=== PATIENT | male | born 1970 | race Asian ===

== ENCOUNTER 2023-08-27 17:31 | Inpatient (IN) | payer MEDICAID ==
[~2023-08-27] VITALS: Ht 152.4 cm; Wt 53.5 kg
[2023-08-27] MEDS ORDERED: FLUT16SP BNOSTRILS (18:41)
[2023-08-27] MEDS ORDERED: ACET-868 PO (18:41)
[2023-08-27] MEDS ORDERED: SENN-261 PO (18:41)
[2023-08-27] MEDS ORDERED: VITA1TAB20 PO (18:41)
[2023-08-27] MEDS ORDERED: ACET-2605 PO (18:41)
[2023-08-27] MEDS ORDERED: MULT-594 PO (18:41)
[2023-08-27] MEDS ORDERED: AMOX1TAB16 PO (18:41)
[2023-08-27] MEDS ORDERED: DOCU100T2 PO (18:41)
[2023-08-27] MEDS ORDERED: OSEL75CA PO (18:41)
[2023-08-27] MEDS ORDERED: DIVA125C5 PO (18:41)
[2023-08-27] MEDS ORDERED: IPRA3AMP22 IH (18:41)
[2023-08-27] MEDS ORDERED: MAGN400T8 PO (18:41)
[2023-08-27 19:11] LABS: BASOPHILS % (AUTO) 0.4 % (0.0-2.0); EOSINOPHILS % (AUTO) 0.3 % (0.0-6.0); HEMATOCRIT 35 % (39-51); HEMOGLOBIN 11.6 g/dL (13.5-17.5); LYMPHOCYTES # (AUTO) 3.5 K/uL (0.8-4.8); LYMPHOCYTES % (AUTO) 39.7 % (20.0-44.0); MEAN CORPUSCULAR HEMOGLOBIN 33 PG (26.0-33.0); MEAN CORPUSCULAR HGB CONC 33 g/dl (31.0-36.0); MEAN CORPUSCULAR VOLUME 99 fL (80-96); MONOCYTES % (AUTO) 11.2 % (2.0-12.0); NEUTROPHILS # (AUTO) 4.2 K/uL (1.8-8.9); NEUTROPHILS % (AUTO) 48.4 % (43.0-81.0); PLATELET COUNT (AUTO) 570 K/uL (150-450); RED BLOOD CELL COUNT(AUTO) 3.53 MIL/uL (4.5-6.0); RED CELL DISTRIBUTION WIDTH 14.4 % (11.5-15.0); WHITE BLOOD COUNT (AUTO) 8.8 K/uL (4.3-11.0)
[2023-08-27 19:21] LABS: CALCIUM, SERUM 8.7 mg/dL (8.5-10.1); CARBON DIOXIDE 31 mmol/L (21-32); CHLORIDE 101 mmol/L (98-107); CREATININE 0.9 mg/dL (0.6-1.3); GLUCOSE 98 mg/dL (74-106); POTASSIUM 4.7 mmol/L (3.5-5.1); SODIUM SERUM 137 mmol/L (136-145); UREA NITROGEN, BLOOD 15 mg/dL (7-18)
[2023-08-27 19:32] LABS: ALANINE AMINOTRANSFERASE 8 U/L (12-78); ALBUMIN 2.7 g/dL (3.4-5.0); ALKALINE PHOSPHATASE 90 U/L (46-116); ASPARTATE AMINOTRANSFERASE 26 U/L (15-37); BILIRUBIN,DIRECT 0.1 mg/dL (0.0-0.2); BILIRUBIN,TOTAL 0.2 mg/dL (0.2-1.0); NT-PRO BNP 138 pg/mL (0-125); TOTAL PROTEIN, SERUM 7.8 g/dL (6.4-8.2)
[2023-08-27] MEDS ORDERED: CEFTRIAXONE 1GM BAG (ER ONLY) 1 GM/50 ML PIGGYBACK IV ONE (21:00)
[2023-08-27] MEDS ORDERED: AZITHROMYCIN 500 MG in IV D5W 250 ML IV ONE (21:00)
[2023-08-27] MEDS ORDERED: AZITHROMYCIN 500 MG VIAL ONE (21:56)
[2023-08-27] MEDS ORDERED: ACETAMINOPHEN 650 MG/SUPP.RECT RC PRN (22:30)
[2023-08-27] MEDS ORDERED: MAGNESIUM HYDROXIDE 30 ML UDC PO PRN (22:30)
[2023-08-27] MEDS ORDERED: MAG HYDROX/AL HYDROX/SIMETH 30 ML UDC PO PRN (22:30)
[2023-08-27] MEDS ORDERED: ZOLPIDEM TARTRATE 5 MG TABLET PO PRN (22:30)
[2023-08-27] MEDS ORDERED: Z GUARD REMEDY 4 OZ OINT TP PRN (22:30)
[2023-08-27] MEDS ORDERED: ACETAMINOPHEN 325 MG TABLET PO PRN (22:30)
[2023-08-27] MEDS ORDERED: ONDANSETRON HCL/PF 4 MG/2 ML VIAL IVP PRN (22:30)
[2023-08-28] VITALS (13 sets, daily range): BP systolic 102–143; BP diastolic 52–97; TEMP 97.3–98.8; O2SAT 92–99
[2023-08-28] MEDS ORDERED: Medication Not On Formulary EA (Ipratropium/Albuterol Sulfate (Ipratr-Albuterol 0.5-3 Mg IH SCH (01:00)
[2023-08-28] MEDS: IV NS 0.9% 1,000 ML IV PRN (01:32)
[2023-08-28] MEDS: IPRATROPIUM NEB FS 0.5 MG/2.5 ML AMPUL.NEB IH SCH ×6 (05:26→22:53)
[2023-08-28] MEDS: ALBUTEROL FS 2.5 MG/0.5 ML VIAL.NEB NEB SCH ×6 (05:26→22:53)
[2023-08-28] MEDS: DIVALPROEX SODIUM 125 MG CAP.SPRINK PO SCH ×2 (09:00→16:09)
[2023-08-28] MEDS: FLUTICASONE PROPIONATE 16 GM BOTTLE NS SCH (09:00)
[2023-08-28] MEDS: DOCUSATE SODIUM 100 MG CAPSULE PO SCH ×2 (09:00→16:09)
[2023-08-28] MEDS: VITAMIN B COMP W-C 1 TAB TABLET PO SCH (09:00)
[2023-08-28] MEDS: MULTIVITAMINS,THERAGRAN 1 UDTAB TABLET PO SCH (09:00)
[2023-08-28] MEDS ORDERED: CEFTRIAXONE 1 G in IV D5W 50 ML IV SCH ×2 (09:00→21:00)
[2023-08-28] MEDS: MAGNESIUM OXIDE 400 MG TABLET PO SCH (09:00)
[2023-08-28 09:19] LABS: BASOPHILS # (AUTO) 0.1 K/uL (0.0-0.2); BASOPHILS % (AUTO) 0.6 % (0.0-2.0); EOSINOPHILS % (AUTO) 0.4 % (0.0-6.0); HEMATOCRIT 37 % (39-51); HEMOGLOBIN 12.6 g/dL (13.5-17.5); LYMPHOCYTES # (AUTO) 3.8 K/uL (0.8-4.8); MEAN CORPUSCULAR HEMOGLOBIN 34 PG (26.0-33.0); MEAN CORPUSCULAR HGB CONC 34 g/dl (31.0-36.0); MEAN CORPUSCULAR VOLUME 99 fL (80-96); MONOCYTES # (AUTO) 0.9 K/uL (0.1-1.30); MONOCYTES % (AUTO) 10.9 % (2.0-12.0); NEUTROPHILS # (AUTO) 3.5 K/uL (1.8-8.9); NEUTROPHILS % (AUTO) 42.1 % (43.0-81.0); PLATELET COUNT (AUTO) 584 K/uL (150-450); RED BLOOD CELL COUNT(AUTO) 3.75 MIL/uL (4.5-6.0); RED CELL DISTRIBUTION WIDTH 14.4 % (11.5-15.0); WHITE BLOOD COUNT (AUTO) 8.3 K/uL (4.3-11.0)
[2023-08-28 09:37] LABS: CALCIUM, SERUM 8.7 mg/dL (8.5-10.1); CREATININE 0.7 mg/dL (0.6-1.3); MAGNESIUM 2.5 mg/dL (1.8-2.4); PHOSPHORUS 3.4 mg/dL (2.5-4.9); POTASSIUM 3.7 mmol/L (3.5-5.1)
[2023-08-28 10:25] LABS: FREE T4 (FREE THYROXINE) 1.23 ng/dL (0.76-1.46); THYROID STIMULATING HORMONE 2.359 uIU/mL (0.358-3.74)
[2023-08-28] MEDS: ENOXAPARIN SODIUM 40 MG/0.4 ML DISP.SYRIN SQ SCH (13:11)
[2023-08-28] MEDS ORDERED: AZITHROMYCIN 500 MG in IV D5W 250 ML IV SCH (21:00)
[2023-08-28] MEDS: SENNOSIDES 8.6 MG TABLET PO SCH (21:45)
[2023-08-29] VITALS (12 sets, daily range): BP systolic 95–115; BP diastolic 59–84; TEMP 98–98.5; O2SAT 93–100
[2023-08-29] MEDS: IPRATROPIUM NEB FS 0.5 MG/2.5 ML AMPUL.NEB IH SCH ×5 (04:00→19:49)
[2023-08-29] MEDS: ALBUTEROL FS 2.5 MG/0.5 ML VIAL.NEB NEB SCH ×5 (04:00→19:49)
[2023-08-29 06:54] LABS: BASOPHILS % (AUTO) 0.4 % (0.0-2.0); EOSINOPHILS % (AUTO) 0.1 % (0.0-6.0); HEMATOCRIT 34 % (39-51); HEMOGLOBIN 11.5 g/dL (13.5-17.5); LYMPHOCYTES # (AUTO) 3.6 K/uL (0.8-4.8); LYMPHOCYTES % (AUTO) 40.9 % (20.0-44.0); MEAN CORPUSCULAR HEMOGLOBIN 33 PG (26.0-33.0); MEAN CORPUSCULAR HGB CONC 34 g/dl (31.0-36.0); MEAN CORPUSCULAR VOLUME 99 fL (80-96); MONOCYTES % (AUTO) 11.9 % (2.0-12.0); NEUTROPHILS # (AUTO) 4.1 K/uL (1.8-8.9); NEUTROPHILS % (AUTO) 46.7 % (43.0-81.0); PLATELET COUNT (AUTO) 628 K/uL (150-450); RED BLOOD CELL COUNT(AUTO) 3.46 MIL/uL (4.5-6.0); RED CELL DISTRIBUTION WIDTH 14.8 % (11.5-15.0); WHITE BLOOD COUNT (AUTO) 8.8 K/uL (4.3-11.0)
[2023-08-29 07:05] LABS: CALCIUM, SERUM 8.7 mg/dL (8.5-10.1); CREATININE 0.7 mg/dL (0.6-1.3); POTASSIUM 3.5 mmol/L (3.5-5.1)
[2023-08-29] MEDS: FLUTICASONE PROPIONATE 16 GM BOTTLE NS SCH (08:52)
[2023-08-29] MEDS: ENOXAPARIN SODIUM 40 MG/0.4 ML DISP.SYRIN SQ SCH (08:53)
[2023-08-29] MEDS: MULTIVITAMINS,THERAGRAN 1 UDTAB TABLET PO SCH (09:58)
[2023-08-29] MEDS: DIVALPROEX SODIUM 125 MG CAP.SPRINK PO SCH ×2 (09:59→16:45)
[2023-08-29] MEDS: MAGNESIUM OXIDE 400 MG TABLET PO SCH (09:59)
[2023-08-29] MEDS: DOCUSATE SODIUM 100 MG CAPSULE PO SCH ×2 (09:59→16:45)
[2023-08-29] MEDS: VITAMIN B COMP W-C 1 TAB TABLET PO SCH (10:02)
[2023-08-29] MEDS ORDERED: VANCOMYCIN 1.25 GM in IV D5W 250 ML IV ONE (12:00)
[2023-08-29] MEDS: CEFEPIME 2 GM in IV D5W 100 ML IV SCH ×2 (12:28→20:09)
[2023-08-29] MEDS: IV NS 0.9% 1,000 ML IV PRN (12:32)
[2023-08-29] MEDS: JEVITY 1.2 CAL 1,000 ML BOTTLE GT SCH (16:46)
[2023-08-29] MEDS: VANCOMYCIN HCL 0.75 GM in IV D5W 250 ML IV SCH (20:09)
[2023-08-29] MEDS: SENNOSIDES 8.6 MG TABLET PO SCH (21:11)
[2023-08-30] VITALS (20 sets, daily range): BP systolic 99–124; BP diastolic 62–89; TEMP 97.5–99.1; O2SAT 0–100
[2023-08-30] MEDS: ALBUTEROL FS 2.5 MG/0.5 ML VIAL.NEB NEB SCH ×7 (00:15→23:34)
[2023-08-30] MEDS: IPRATROPIUM NEB FS 0.5 MG/2.5 ML AMPUL.NEB IH SCH ×7 (00:15→23:34)
[2023-08-30] MEDS: CEFEPIME 2 GM in IV D5W 100 ML IV SCH ×2 (05:15→17:35)
[2023-08-30] MEDS: VANCOMYCIN HCL 0.75 GM in IV D5W 250 ML IV SCH (05:16)
[2023-08-30] MEDS: IV NS 0.9% 1,000 ML IV PRN (05:23)
[2023-08-30 06:56] LABS: CALCIUM, SERUM 8.8 mg/dL (8.5-10.1); CREATININE 0.7 mg/dL (0.6-1.3); POTASSIUM 4.2 mmol/L (3.5-5.1)
[2023-08-30] MEDS: ENOXAPARIN SODIUM 40 MG/0.4 ML DISP.SYRIN SQ SCH (08:52)
[2023-08-30] MEDS: VITAMIN B COMP W-C 1 TAB TABLET PO SCH (08:54)
[2023-08-30] MEDS: MULTIVITAMINS,THERAGRAN 1 UDTAB TABLET PO SCH (08:54)
[2023-08-30] MEDS: MAGNESIUM OXIDE 400 MG TABLET PO SCH (08:55)
[2023-08-30] MEDS: DOCUSATE SODIUM 100 MG CAPSULE PO SCH ×2 (08:55→17:33)
[2023-08-30] MEDS: DIVALPROEX SODIUM 125 MG CAP.SPRINK PO SCH ×2 (08:56→17:33)
[2023-08-30] MEDS: FLUTICASONE PROPIONATE 16 GM BOTTLE NS SCH (09:27)
[2023-08-30] MEDS: SENNOSIDES 8.6 MG TABLET PO SCH (22:02)
[2023-08-31] VITALS (14 sets, daily range): BP systolic 103–154; BP diastolic 49–141; TEMP 98–99.5; O2SAT 93–100
[2023-08-31] MEDS: IPRATROPIUM NEB FS 0.5 MG/2.5 ML AMPUL.NEB IH SCH ×5 (03:42→20:12)
[2023-08-31] MEDS: ALBUTEROL FS 2.5 MG/0.5 ML VIAL.NEB NEB SCH ×5 (03:42→20:12)
[2023-08-31] MEDS: CEFEPIME 2 GM in IV D5W 100 ML IV SCH ×2 (04:33→17:33)
[2023-08-31] MEDS: VANCOMYCIN HCL 0.75 GM in IV D5W 250 ML IV SCH ×2 (04:42→18:24)
[2023-08-31 07:41] LABS: CALCIUM, SERUM 8.7 mg/dL (8.5-10.1); CREATININE 0.8 mg/dL (0.6-1.3); POTASSIUM 3.4 mmol/L (3.5-5.1)
[2023-08-31] MEDS ORDERED: POTASSIUM CHLORIDE 20 MEQ POWDER PACKET NG SCH (10:00)
[2023-08-31] MEDS: VITAMIN B COMP W-C 1 TAB TABLET PO SCH (10:06)
[2023-08-31] MEDS: DIVALPROEX SODIUM 125 MG CAP.SPRINK PO SCH ×2 (10:07→17:16)
[2023-08-31] MEDS: MAGNESIUM OXIDE 400 MG TABLET PO SCH (10:07)
[2023-08-31] MEDS: FLUTICASONE PROPIONATE 16 GM BOTTLE NS SCH (10:07)
[2023-08-31] MEDS: DOCUSATE SODIUM 100 MG CAPSULE PO SCH ×2 (10:07→17:16)
[2023-08-31] MEDS: ENOXAPARIN SODIUM 40 MG/0.4 ML DISP.SYRIN SQ SCH (10:08)
[2023-08-31] MEDS: MULTIVITAMINS,THERAGRAN 1 UDTAB TABLET PO SCH (10:09)
[2023-08-31 12:06] LABS: *SPE A/G RATIO 0.6 (0.7-1.7); *SPE ALBUMIN 2.8 g/dL (2.9-4.4); *SPE ALPHA-1-GLOBULIN 0.3 g/dL (0.0-0.4); *SPE BETA GLOBULIN 1.3 g/dL (0.7-1.3); *SPE GLOBULIN, TOTAL 4.4 g/dL (2.2-3.9); *SPE M-SPIKE Not Observed g/dL (Not Observed); *SPE PROTEIN TOTAL 7.2 g/dL (6.0-8.5); *SPEGAMMA GLOBULIN 1.8 g/dL (0.4-1.8)
[2023-08-31] MEDS: IV NS 0.9% 1,000 ML IV PRN (13:25)
[2023-08-31] MEDS: JEVITY 1.2 CAL 1,000 ML BOTTLE GT SCH (17:34)
[2023-08-31] MEDS: SENNOSIDES 8.6 MG TABLET PO SCH (21:54)
[2023-09-01] VITALS (15 sets, daily range): BP systolic 96–129; BP diastolic 58–93; TEMP 98.4–99.7; O2SAT 96–100
[2023-09-01] MEDS: ALBUTEROL FS 2.5 MG/0.5 ML VIAL.NEB NEB SCH ×6 (00:31→20:06)
[2023-09-01] MEDS: IPRATROPIUM NEB FS 0.5 MG/2.5 ML AMPUL.NEB IH SCH ×6 (00:31→20:06)
[2023-09-01] MEDS: CEFEPIME 2 GM in IV D5W 100 ML IV SCH ×2 (04:13→16:03)
[2023-09-01] MEDS: IV NS 0.9% 1,000 ML IV PRN (05:01)
[2023-09-01] MEDS: VANCOMYCIN HCL 0.75 GM in IV D5W 250 ML IV SCH ×2 (05:02→17:24)
[2023-09-01 07:19] LABS: BASOPHILS # (AUTO) 0.1 K/uL (0.0-0.2); BASOPHILS % (AUTO) 0.7 % (0.0-2.0); EOSINOPHILS % (AUTO) 0.3 % (0.0-6.0); HEMATOCRIT 36 % (39-51); HEMOGLOBIN 11.9 g/dL (13.5-17.5); LYMPHOCYTES # (AUTO) 3.6 K/uL (0.8-4.8); LYMPHOCYTES % (AUTO) 30.9 % (20.0-44.0); MEAN CORPUSCULAR HEMOGLOBIN 33 PG (26.0-33.0); MEAN CORPUSCULAR HGB CONC 33 g/dl (31.0-36.0); MEAN CORPUSCULAR VOLUME 100 fL (80-96); MONOCYTES # (AUTO) 1.5 K/uL (0.1-1.30); MONOCYTES % (AUTO) 12.9 % (2.0-12.0); NEUTROPHILS # (AUTO) 6.5 K/uL (1.8-8.9); NEUTROPHILS % (AUTO) 55.2 % (43.0-81.0); PLATELET COUNT (AUTO) 607 K/uL (150-450); RED BLOOD CELL COUNT(AUTO) 3.58 MIL/uL (4.5-6.0); RED CELL DISTRIBUTION WIDTH 15.2 % (11.5-15.0); WHITE BLOOD COUNT (AUTO) 11.8 K/uL (4.3-11.0)
[2023-09-01 07:41] LABS: CALCIUM, SERUM 8.9 mg/dL (8.5-10.1); CREATININE 0.7 mg/dL (0.6-1.3); POTASSIUM 3.9 mmol/L (3.5-5.1)
[2023-09-01] MEDS: MULTIVITAMINS,THERAGRAN 1 UDTAB TABLET PO SCH (08:36)
[2023-09-01] MEDS: DIVALPROEX SODIUM 125 MG CAP.SPRINK PO SCH ×2 (08:36→16:14)
[2023-09-01] MEDS: DOCUSATE SODIUM 100 MG CAPSULE PO SCH ×2 (08:36→16:14)
[2023-09-01] MEDS: FLUTICASONE PROPIONATE 16 GM BOTTLE NS SCH (08:36)
[2023-09-01] MEDS: MAGNESIUM OXIDE 400 MG TABLET PO SCH (08:36)
[2023-09-01] MEDS: ENOXAPARIN SODIUM 40 MG/0.4 ML DISP.SYRIN SQ SCH (09:06)
[2023-09-01] MEDS: VITAMIN B COMP W-C 1 TAB TABLET PO SCH (09:07)
[2023-09-01] MEDS: JEVITY 1.2 CAL 1,000 ML BOTTLE GT SCH (13:35)
[2023-09-01] MEDS: SENNOSIDES 8.6 MG TABLET PO SCH (23:02)
[2023-09-02] VITALS (19 sets, daily range): BP systolic 108–128; BP diastolic 62–99; TEMP 98.1–98.8; O2SAT 92–100
[2023-09-02] MEDS: IPRATROPIUM NEB FS 0.5 MG/2.5 ML AMPUL.NEB IH SCH ×8 (00:14→23:46)
[2023-09-02] MEDS: ALBUTEROL FS 2.5 MG/0.5 ML VIAL.NEB NEB SCH ×8 (00:14→23:46)
[2023-09-02] MEDS: IV NS 0.9% 1,000 ML IV PRN ×3 (01:06→21:29)
[2023-09-02] MEDS: VANCOMYCIN HCL 0.75 GM in IV D5W 250 ML IV SCH ×2 (05:00→16:01)
[2023-09-02] MEDS: CEFEPIME 2 GM in IV D5W 100 ML IV SCH ×2 (05:25→17:22)
[2023-09-02 06:54] LABS: BASOPHILS % (AUTO) 0.4 % (0.0-2.0); EOSINOPHILS # (AUTO) 0.1 K/uL (0.0-0.7); EOSINOPHILS % (AUTO) 0.8 % (0.0-6.0); HEMATOCRIT 32 % (39-51); HEMOGLOBIN 11.3 g/dL (13.5-17.5); LYMPHOCYTES # (AUTO) 2.7 K/uL (0.8-4.8); LYMPHOCYTES % (AUTO) 29.1 % (20.0-44.0); MEAN CORPUSCULAR HEMOGLOBIN 34 PG (26.0-33.0); MEAN CORPUSCULAR HGB CONC 35 g/dl (31.0-36.0); MEAN CORPUSCULAR VOLUME 97 fL (80-96); MONOCYTES # (AUTO) 1.3 K/uL (0.1-1.30); MONOCYTES % (AUTO) 14.1 % (2.0-12.0); NEUTROPHILS # (AUTO) 5.2 K/uL (1.8-8.9); NEUTROPHILS % (AUTO) 55.6 % (43.0-81.0); PLATELET COUNT (AUTO) 558 K/uL (150-450); RED BLOOD CELL COUNT(AUTO) 3.32 MIL/uL (4.5-6.0); RED CELL DISTRIBUTION WIDTH 14.6 % (11.5-15.0); WHITE BLOOD COUNT (AUTO) 9.3 K/uL (4.3-11.0)
[2023-09-02 07:18] LABS: PARTIAL THROMBOPLASTIN TIME 29.9 SEC (24.3-34.3); PROTHROMBIN TIME 10.6 SECS (9.2-11.1)
[2023-09-02 07:27] LABS: CALCIUM, SERUM 8.9 mg/dL (8.5-10.1); CREATININE 0.7 mg/dL (0.6-1.3); MAGNESIUM 2.5 mg/dL (1.8-2.4); PHOSPHORUS 4.1 mg/dL (2.5-4.9); POTASSIUM 3.7 mmol/L (3.5-5.1)
[2023-09-02] MEDS: VITAMIN B COMP W-C 1 TAB TABLET PO SCH (08:31)
[2023-09-02] MEDS: DOCUSATE SODIUM 100 MG CAPSULE PO SCH ×2 (08:31→16:24)
[2023-09-02] MEDS: MULTIVITAMINS,THERAGRAN 1 UDTAB TABLET PO SCH (08:31)
[2023-09-02] MEDS: ENOXAPARIN SODIUM 40 MG/0.4 ML DISP.SYRIN SQ SCH (08:32)
[2023-09-02] MEDS: DIVALPROEX SODIUM 125 MG CAP.SPRINK PO SCH ×2 (08:32→16:24)
[2023-09-02] MEDS: MAGNESIUM OXIDE 400 MG TABLET PO SCH (08:32)
[2023-09-02] MEDS: FLUTICASONE PROPIONATE 16 GM BOTTLE NS SCH (08:35)
[2023-09-02] MEDS ORDERED: ANESTHESIA TRAY IN PYXIS 1 EA TRAY MC ONE (12:58)
[2023-09-02] MEDS: SENNOSIDES 8.6 MG TABLET PO SCH (21:29)
[2023-09-03] VITALS (11 sets, daily range): BP systolic 90–135; BP diastolic 60–76; TEMP 97–98.5; O2SAT 94–100
[2023-09-03] MEDS: ALBUTEROL FS 2.5 MG/0.5 ML VIAL.NEB NEB SCH ×6 (04:09→23:53)
[2023-09-03] MEDS: IPRATROPIUM NEB FS 0.5 MG/2.5 ML AMPUL.NEB IH SCH ×6 (04:09→23:53)
[2023-09-03] MEDS: JEVITY 1.2 CAL 1,000 ML BOTTLE GT SCH (04:48)
[2023-09-03] MEDS: IV NS 0.9% 1,000 ML IV PRN (05:00)
[2023-09-03] MEDS: CEFEPIME 2 GM in IV D5W 100 ML IV SCH ×2 (05:35→16:17)
[2023-09-03] MEDS: VANCOMYCIN HCL 0.75 GM in IV D5W 250 ML IV SCH ×2 (05:36→17:04)
[2023-09-03 06:47] LABS: BASOPHILS # (AUTO) 0.1 K/uL (0.0-0.2); BASOPHILS % (AUTO) 0.5 % (0.0-2.0); EOSINOPHILS % (AUTO) 0.4 % (0.0-6.0); HEMATOCRIT 33 % (39-51); HEMOGLOBIN 11.2 g/dL (13.5-17.5); LYMPHOCYTES # (AUTO) 2.6 K/uL (0.8-4.8); MEAN CORPUSCULAR HEMOGLOBIN 33 PG (26.0-33.0); MEAN CORPUSCULAR HGB CONC 34 g/dl (31.0-36.0); MEAN CORPUSCULAR VOLUME 99 fL (80-96); MONOCYTES # (AUTO) 1.8 K/uL (0.1-1.30); MONOCYTES % (AUTO) 15.9 % (2.0-12.0); NEUTROPHILS # (AUTO) 6.8 K/uL (1.8-8.9); NEUTROPHILS % (AUTO) 60.2 % (43.0-81.0); PLATELET COUNT (AUTO) 475 K/uL (150-450); RED BLOOD CELL COUNT(AUTO) 3.38 MIL/uL (4.5-6.0); RED CELL DISTRIBUTION WIDTH 14.8 % (11.5-15.0); WHITE BLOOD COUNT (AUTO) 11.3 K/uL (4.3-11.0)
[2023-09-03 07:06] LABS: CALCIUM, SERUM 9.1 mg/dL (8.5-10.1); CREATININE 0.7 mg/dL (0.6-1.3); MAGNESIUM 2.6 mg/dL (1.8-2.4); PHOSPHORUS 3.9 mg/dL (2.5-4.9); POTASSIUM 4.1 mmol/L (3.5-5.1)
[2023-09-03] MEDS: MULTIVITAMINS,THERAGRAN 1 UDTAB TABLET PO SCH (09:00)
[2023-09-03] MEDS: MAGNESIUM OXIDE 400 MG TABLET PO SCH (09:00)
[2023-09-03] MEDS: DOCUSATE SODIUM 100 MG CAPSULE PO SCH ×2 (09:00→17:00)
[2023-09-03] MEDS: VITAMIN B COMP W-C 1 TAB TABLET PO SCH (09:00)
[2023-09-03] MEDS: DIVALPROEX SODIUM 125 MG CAP.SPRINK PO SCH ×2 (09:00→17:00)
[2023-09-03] MEDS: ENOXAPARIN SODIUM 40 MG/0.4 ML DISP.SYRIN SQ SCH (09:00)
[2023-09-03] MEDS: FLUTICASONE PROPIONATE 16 GM BOTTLE NS SCH (09:23)
[2023-09-03] MEDS ORDERED: ANESTHESIA TRAY IN PYXIS 1 EA TRAY MC ONE (14:59)
[2023-09-03] MEDS: SENNOSIDES 8.6 MG TABLET PO SCH (21:42)
[2023-09-04] VITALS (16 sets, daily range): BP systolic 84–104; BP diastolic 66–76; TEMP 97.8–100.1; O2SAT 96–99
[2023-09-04] MEDS: CEFEPIME 2 GM in IV D5W 100 ML IV SCH ×2 (04:04→16:59)
[2023-09-04] MEDS: IPRATROPIUM NEB FS 0.5 MG/2.5 ML AMPUL.NEB IH SCH ×5 (04:17→20:12)
[2023-09-04] MEDS: ALBUTEROL FS 2.5 MG/0.5 ML VIAL.NEB NEB SCH ×5 (04:17→20:12)
[2023-09-04] MEDS: VANCOMYCIN HCL 0.75 GM in IV D5W 250 ML IV SCH ×2 (04:41→17:59)
[2023-09-04 07:26] LABS: CALCIUM, SERUM 8.2 mg/dL (8.5-10.1); CREATININE 0.7 mg/dL (0.6-1.3); POTASSIUM 3.7 mmol/L (3.5-5.1)
[2023-09-04] MEDS: JEVITY 1.2 CAL 1,000 ML BOTTLE GT SCH (08:13)
[2023-09-04] MEDS: MULTIVITAMINS,THERAGRAN 1 UDTAB TABLET PO SCH (08:19)
[2023-09-04] MEDS: DIVALPROEX SODIUM 125 MG CAP.SPRINK PO SCH ×2 (08:19→17:41)
[2023-09-04] MEDS: MAGNESIUM OXIDE 400 MG TABLET PO SCH (08:19)
[2023-09-04] MEDS: DOCUSATE SODIUM 100 MG CAPSULE PO SCH ×2 (08:19→17:41)
[2023-09-04] MEDS: FLUTICASONE PROPIONATE 16 GM BOTTLE NS SCH (08:19)
[2023-09-04] MEDS: ENOXAPARIN SODIUM 40 MG/0.4 ML DISP.SYRIN SQ SCH (08:22)
[2023-09-04] MEDS: VITAMIN B COMP W-C 1 TAB TABLET PO SCH (09:00)
[2023-09-04] MEDS: IV NS 0.9% 1,000 ML IV PRN (16:58)
[2023-09-04] MEDS: SENNOSIDES 8.6 MG TABLET PO SCH (21:57)
[2023-09-05] VITALS (13 sets, daily range): BP systolic 101–138; BP diastolic 68–84; TEMP 97.5–98.8; O2SAT 95–99
[2023-09-05] MEDS: IPRATROPIUM NEB FS 0.5 MG/2.5 ML AMPUL.NEB IH SCH ×7 (00:01→23:49)
[2023-09-05] MEDS: ALBUTEROL FS 2.5 MG/0.5 ML VIAL.NEB NEB SCH ×7 (00:01→23:49)
[2023-09-05] MEDS: CEFEPIME 2 GM in IV D5W 100 ML IV SCH ×2 (04:50→18:03)
[2023-09-05] MEDS: VANCOMYCIN HCL 0.75 GM in IV D5W 250 ML IV SCH ×2 (04:51→18:04)
[2023-09-05] MEDS: FLUTICASONE PROPIONATE 16 GM BOTTLE NS SCH (09:00)
[2023-09-05 09:01] LABS: BASOPHILS # (AUTO) 0.1 K/uL (0.0-0.2); BASOPHILS % (AUTO) 1.2 % (0.0-2.0); EOSINOPHILS % (AUTO) 0.4 % (0.0-6.0); HEMATOCRIT 29 % (39-51); HEMOGLOBIN 9.5 g/dL (13.5-17.5); LYMPHOCYTES # (AUTO) 2.8 K/uL (0.8-4.8); LYMPHOCYTES % (AUTO) 34.3 % (20.0-44.0); MEAN CORPUSCULAR HEMOGLOBIN 33 PG (26.0-33.0); MEAN CORPUSCULAR HGB CONC 33 g/dl (31.0-36.0); MEAN CORPUSCULAR VOLUME 98 fL (80-96); MONOCYTES # (AUTO) 1.2 K/uL (0.1-1.30); MONOCYTES % (AUTO) 14.3 % (2.0-12.0); NEUTROPHILS % (AUTO) 49.8 % (43.0-81.0); PLATELET COUNT (AUTO) 438 K/uL (150-450); RED BLOOD CELL COUNT(AUTO) 2.91 MIL/uL (4.5-6.0); RED CELL DISTRIBUTION WIDTH 14.5 % (11.5-15.0)
[2023-09-05 09:24] LABS: ALANINE AMINOTRANSFERASE < 6 U/L (12-78); ALBUMIN 2.3 g/dL (3.4-5.0); ALKALINE PHOSPHATASE 102 U/L (46-116); ASPARTATE AMINOTRANSFERASE 10 U/L (15-37); BILIRUBIN,TOTAL 0.3 mg/dL (0.2-1.0); CALCIUM, SERUM 8.5 mg/dL (8.5-10.1); CARBON DIOXIDE 26 mmol/L (21-32); CHLORIDE 105 mmol/L (98-107); CREATININE 0.7 mg/dL (0.6-1.3); GLUCOSE 111 mg/dL (74-106); POTASSIUM 3.6 mmol/L (3.5-5.1); SODIUM SERUM 138 mmol/L (136-145); TOTAL PROTEIN, SERUM 7.4 g/dL (6.4-8.2); UREA NITROGEN, BLOOD 8 mg/dL (7-18)
[2023-09-05] MEDS: MAGNESIUM OXIDE 400 MG TABLET PO SCH (10:05)
[2023-09-05] MEDS: MULTIVITAMINS,THERAGRAN 1 UDTAB TABLET PO SCH (10:05)
[2023-09-05] MEDS: DOCUSATE SODIUM 100 MG CAPSULE PO SCH ×2 (10:05→18:04)
[2023-09-05] MEDS: DIVALPROEX SODIUM 125 MG CAP.SPRINK PO SCH ×2 (10:05→18:04)
[2023-09-05] MEDS: ENOXAPARIN SODIUM 40 MG/0.4 ML DISP.SYRIN SQ SCH (10:08)
[2023-09-05] MEDS: VITAMIN B COMP W-C 1 TAB TABLET PO SCH (10:15)
[2023-09-05] MEDS: JEVITY 1.2 CAL 1,000 ML BOTTLE GT SCH (18:09)
[2023-09-05] MEDS: IV NS 0.9% 1,000 ML IV PRN (18:10)
[2023-09-05 18:19] LABS: HEMOGLOBIN 10.4 g/dL (13.5-17.5)
[2023-09-05] MEDS: SENNOSIDES 8.6 MG TABLET PO SCH (22:22)
[2023-09-06] VITALS (16 sets, daily range): BP systolic 96–119; BP diastolic 54–98; TEMP 97.2–99.1; O2SAT 97–100
[2023-09-06 02:17] LABS: HEMOGLOBIN 10.2 g/dL (13.5-17.5)
[2023-09-06 02:29] LABS: CALCIUM, SERUM 8.5 mg/dL (8.5-10.1); CREATININE 0.7 mg/dL (0.6-1.3); POTASSIUM 3.9 mmol/L (3.5-5.1)
[2023-09-06] MEDS: IPRATROPIUM NEB FS 0.5 MG/2.5 ML AMPUL.NEB IH SCH ×6 (03:17→23:10)
[2023-09-06] MEDS: ALBUTEROL FS 2.5 MG/0.5 ML VIAL.NEB NEB SCH ×6 (03:17→23:10)
[2023-09-06] MEDS: CEFEPIME 2 GM in IV D5W 100 ML IV SCH ×2 (04:49→16:19)
[2023-09-06] MEDS: VANCOMYCIN HCL 0.75 GM in IV D5W 250 ML IV SCH ×2 (04:49→17:19)
[2023-09-06] MEDS: FLUTICASONE PROPIONATE 16 GM BOTTLE NS SCH (08:15)
[2023-09-06] MEDS: ENOXAPARIN SODIUM 40 MG/0.4 ML DISP.SYRIN SQ SCH (08:17)
[2023-09-06] MEDS: MAGNESIUM OXIDE 400 MG TABLET PO SCH (08:17)
[2023-09-06] MEDS: DIVALPROEX SODIUM 125 MG CAP.SPRINK PO SCH ×2 (08:17→16:21)
[2023-09-06] MEDS: DOCUSATE SODIUM 100 MG CAPSULE PO SCH ×2 (08:17→16:21)
[2023-09-06] MEDS: MULTIVITAMINS,THERAGRAN 1 UDTAB TABLET PO SCH (08:17)
[2023-09-06] MEDS: VITAMIN B COMP W-C 1 TAB TABLET PO SCH (08:18)
[2023-09-06] MEDS: JEVITY 1.2 CAL 1,000 ML BOTTLE GT SCH (16:22)
[2023-09-06] MEDS: IV NS 0.9% 1,000 ML IV PRN (18:53)
[2023-09-06] MEDS: SENNOSIDES 8.6 MG TABLET PO SCH (23:31)
[2023-09-07] VITALS (8 sets, daily range): BP systolic 94–97; BP diastolic 60–80; TEMP 98.2–98.8; O2SAT 95–100
[2023-09-07] MEDS: ALBUTEROL FS 2.5 MG/0.5 ML VIAL.NEB NEB SCH ×6 (04:01→23:56)
[2023-09-07] MEDS: IPRATROPIUM NEB FS 0.5 MG/2.5 ML AMPUL.NEB IH SCH ×6 (04:01→23:56)
[2023-09-07] MEDS: CEFEPIME 2 GM in IV D5W 100 ML IV SCH (04:35)
[2023-09-07] MEDS: VANCOMYCIN HCL 0.75 GM in IV D5W 250 ML IV SCH (04:57)
[2023-09-07] MEDS ORDERED: MIDO10TA PO (08:22)
[2023-09-07] MEDS: MAGNESIUM OXIDE 400 MG TABLET PO SCH (08:32)
[2023-09-07] MEDS: DOCUSATE SODIUM 100 MG CAPSULE PO SCH ×2 (08:32→16:19)
[2023-09-07] MEDS: MULTIVITAMINS,THERAGRAN 1 UDTAB TABLET PO SCH (08:32)
[2023-09-07] MEDS: FLUTICASONE PROPIONATE 16 GM BOTTLE NS SCH (08:32)
[2023-09-07] MEDS: DIVALPROEX SODIUM 125 MG CAP.SPRINK PO SCH ×2 (08:32→16:19)
[2023-09-07] MEDS: VITAMIN B COMP W-C 1 TAB TABLET PO SCH (09:05)
[2023-09-07] MEDS: ENOXAPARIN SODIUM 40 MG/0.4 ML DISP.SYRIN SQ SCH (09:06)
[2023-09-07] MEDS: JEVITY 1.2 CAL 1,000 ML BOTTLE GT SCH (18:54)
[2023-09-07] MEDS: SENNOSIDES 8.6 MG TABLET PO SCH (21:00)
[2023-09-08] VITALS (7 sets, daily range): BP systolic 103–133; BP diastolic 57–65; TEMP 98–99; O2SAT 96–99
[2023-09-08] MEDS: IPRATROPIUM NEB FS 0.5 MG/2.5 ML AMPUL.NEB IH SCH ×2 (03:33→07:06)
[2023-09-08] MEDS: ALBUTEROL FS 2.5 MG/0.5 ML VIAL.NEB NEB SCH ×2 (03:33→07:06)
[2023-09-08] MEDS: MULTIVITAMINS,THERAGRAN 1 UDTAB TABLET PO SCH (09:12)
[2023-09-08] MEDS: MAGNESIUM OXIDE 400 MG TABLET PO SCH (09:12)
[2023-09-08] MEDS: DIVALPROEX SODIUM 125 MG CAP.SPRINK PO SCH (09:12)
[2023-09-08] MEDS: ENOXAPARIN SODIUM 40 MG/0.4 ML DISP.SYRIN SQ SCH (09:13)
[2023-09-08] MEDS: DOCUSATE SODIUM 100 MG CAPSULE PO SCH (09:14)
[2023-09-08] MEDS: VITAMIN B COMP W-C 1 TAB TABLET PO SCH (09:14)
[2023-09-08] MEDS: FLUTICASONE PROPIONATE 16 GM BOTTLE NS SCH (09:15)
[2023-09-08] MEDS ORDERED: IPRATROPIUM NEB FS 0.5 MG/2.5 ML AMPUL.NEB IH SCH (13:30)
[2023-09-08] MEDS ORDERED: ALBUTEROL FS 2.5 MG/0.5 ML VIAL.NEB NEB SCH (13:30)
== END 2023-09-08 14:49 | DRG 720 ==
LOC: ER 17:37 → TELE1 08-28 00:25 → MEDSG1 09-01 09:49
PROVIDERS: ADMIT Nurse Practitioner Acute Care; ATTEND Internal Medicine
PROC: 0DH63UZ Insertion of Feeding Device into Stomach, Percutaneous Approach (ICD-10-PCS; principal; 2023-09-03)
DX: A41.9 Sepsis, unspecified organism (principal); J96.01 Acute respiratory failure with hypoxia; G93.41 Metabolic encephalopathy; E87.20 Acidosis, unspecified; E44.0 Moderate protein-calorie malnutrition; J15.9 Unspecified bacterial pneumonia; F29 Unspecified psychosis not due to a substance or known physiological condition; E88.09 Other disorders of plasma-protein metabolism, not elsewhere classified; Q90.9 Down syndrome, unspecified; K29.70 Gastritis, unspecified, without bleeding; Z79.51 Long term (current) use of inhaled steroids; Z79.899 Other long term (current) drug therapy; R13.10 Dysphagia, unspecified; Y95 Nosocomial condition; Z78.1 Physical restraint status
CPT/HCPCS: 31720; 36410; 36415; 71045-TC; 80048-TC; 80053-TC; 80076-TC; 80202-TC; 83605-TC; 83735-TC; 83880; 84100-TC; 84155; 84165; 84439-TC; 84443-TC; 84484-TC; 85025-TC; 85027-TC; 85378-TC; 85610-TC; 85730-TC; 86850-TC; 87040-TC; 87081-TC; 92526; 92611-TC; 93307-TC; 93970-TC; 94760-TC; 94762-TC; 94799-TC; A4217; A4223; G0378; J0456; J0692; J0696; J1650; J3370; J3490; J7030; J7060

== ENCOUNTER 2024-06-10 02:27 | Inpatient (IN) | payer MEDICAID, OTHER ==
[~2024-06-10] VITALS: Ht 162.6 cm; Wt 79.4 kg
[~2024-06-10 02:27] MED LIST: ACET-2605 GT; ACET-868 GT; AMOX1TAB16 PO; DIVA125C5 GT; DOCU100T2 GT; FLUT16SP BNOSTRILS; IPRA3AMP22 IH; MAGN400T8 GT; MIDO10TA PO; MULT-594 PO; OSEL75CA PO; SENN-261 GT; VITA1TAB20 GT
[2024-06-10 03:12] LABS: BASOPHILS # (AUTO) 0.1 K/uL (0.0-0.2); BASOPHILS % (AUTO) 0.7 % (0.0-2.0); EOSINOPHILS # (AUTO) 0.1 K/uL (0.0-0.7); EOSINOPHILS % (AUTO) 0.6 % (0.0-6.0); HEMATOCRIT 41 % (39-51); HEMOGLOBIN 13.8 g/dL (13.5-17.5); LYMPHOCYTES # (AUTO) 3.2 K/uL (0.8-4.8); LYMPHOCYTES % (AUTO) 35.5 % (20.0-44.0); MEAN CORPUSCULAR HEMOGLOBIN 32 PG (26.0-33.0); MEAN CORPUSCULAR HGB CONC 33 g/dl (31.0-36.0); MEAN CORPUSCULAR VOLUME 97 fL (80-96); MONOCYTES % (AUTO) 10.8 % (2.0-12.0); NEUTROPHILS # (AUTO) 4.7 K/uL (1.8-8.9); NEUTROPHILS % (AUTO) 52.4 % (43.0-81.0); PLATELET COUNT (AUTO) 415 K/uL (150-450); RED BLOOD CELL COUNT(AUTO) 4.28 MIL/uL (4.5-6.0); RED CELL DISTRIBUTION WIDTH 14.1 % (11.5-15.0)
[2024-06-10 03:18] LABS: CALCIUM, SERUM 9.4 mg/dL (8.5-10.1); CREATININE 0.9 mg/dL (0.6-1.3); POTASSIUM 4.3 mmol/L (3.5-5.1)
[2024-06-10 03:22] LABS: PARTIAL THROMBOPLASTIN TIME 28.4 SEC (24.3-34.3); PROTHROMBIN TIME 10.6 SECS (9.2-11.1)
[2024-06-10] MEDS ORDERED: ACETAMINOPHEN 650 MG/SUPP.RECT RC PRN (04:00)
[2024-06-10] MEDS ORDERED: Z GUARD REMEDY 4 OZ OINT TP PRN (04:00)
[2024-06-10] MEDS ORDERED: ONDANSETRON HCL/PF 4 MG/2 ML VIAL IVP PRN (04:00)
[2024-06-10] MEDS ORDERED: FLUT16SP NS (07:56)
[2024-06-10] MEDS ORDERED: MAGN400O6 GT (07:56)
[2024-06-10] MEDS ORDERED: PROTEIN LIQUID GT (07:56)
[2024-06-10] MEDS ORDERED: LACT-96 GT (07:56)
[2024-06-10] MEDS ORDERED: NA P133E RC (07:56)
[2024-06-10] MEDS ORDERED: BISA10SU11 RC (07:56)
[2024-06-10] MEDS ORDERED: MULT-447 GT (07:56)
[2024-06-10] MEDS: PANTOPRAZOLE 40 MG VIAL IV SCH (08:38)
[2024-06-10] MEDS: IV D5/ 0.9% NACL 1,000 ML IV PRN (08:50)
[2024-06-10] MEDS: DIVALPROEX SODIUM 125 MG CAP.SPRINK GT SCH (09:00)
[2024-06-10] MEDS ORDERED: JEVITY 1.5 CAL LIQUID 1,000 ML BOTTLE GT SCH (09:00)
[2024-06-10 14:13] VITALS: BP 102/69; TEMP 98.8; O2SAT 96
[2024-06-10 16:00] VITALS: BP 97/73; TEMP 98.3; O2SAT 96
[2024-06-10 20:00] VITALS: BP 149/76; TEMP 98.4; O2SAT 97
[2024-06-11] VITALS (8 sets, daily range): BP systolic 93–154; BP diastolic 42–96; TEMP 97.3–99.5; O2SAT 93–99
[2024-06-11] MEDS: LORAZEPAM INJ 2 MG/ML VIAL IV PRN (02:52)
[2024-06-11 06:12] LABS: BASOPHILS # (AUTO) 0.1 K/uL (0.0-0.2); BASOPHILS % (AUTO) 1.1 % (0.0-2.0); EOSINOPHILS # (AUTO) 0.1 K/uL (0.0-0.7); EOSINOPHILS % (AUTO) 0.8 % (0.0-6.0); HEMATOCRIT 34 % (39-51); HEMOGLOBIN 11.5 g/dL (13.5-17.5); LYMPHOCYTES # (AUTO) 2.7 K/uL (0.8-4.8); LYMPHOCYTES % (AUTO) 39.8 % (20.0-44.0); MEAN CORPUSCULAR HEMOGLOBIN 33 PG (26.0-33.0); MEAN CORPUSCULAR HGB CONC 34 g/dl (31.0-36.0); MEAN CORPUSCULAR VOLUME 97 fL (80-96); MONOCYTES # (AUTO) 0.8 K/uL (0.1-1.30); MONOCYTES % (AUTO) 11.9 % (2.0-12.0); NEUTROPHILS # (AUTO) 3.1 K/uL (1.8-8.9); NEUTROPHILS % (AUTO) 46.4 % (43.0-81.0); PLATELET COUNT (AUTO) 401 K/uL (150-450); RED BLOOD CELL COUNT(AUTO) 3.51 MIL/uL (4.5-6.0); RED CELL DISTRIBUTION WIDTH 13.8 % (11.5-15.0); WHITE BLOOD COUNT (AUTO) 6.8 K/uL (4.3-11.0)
[2024-06-11 06:41] LABS: CALCIUM, SERUM 8.2 mg/dL (8.5-10.1); CREATININE 0.8 mg/dL (0.6-1.3); MAGNESIUM 2.6 mg/dL (1.8-2.4); PHOSPHORUS 3.8 mg/dL (2.5-4.9)
[2024-06-11] MEDS: VALPROATE 250 MG in IV D5W 100 ML IV SCH (07:45)
[2024-06-11] MEDS ORDERED: ANESTHESIA TRAY IN PYXIS 1 EA TRAY MC ONE (15:25)
[2024-06-11] MEDS ORDERED: JEVITY 1.5 CAL LIQUID 1,000 ML BOTTLE GT SCH (17:29)
[2024-06-11] MEDS: JEVITY 1.2 CAL 1,000 ML BOTTLE GT PRN (17:45)
[2024-06-12 04:00] VITALS: BP 130/70; TEMP 98; O2SAT 99
[2024-06-12] MEDS: MUPIROCIN OINT 2% 22 GM TUBE NS SCH (10:08)
[2024-06-12 12:00] VITALS: BP 126/72; TEMP 98; O2SAT 98
== END 2024-06-12 17:02 | DRG 252 ==
LOC: ER 02:36 → MEDSG1 03:51
PROVIDERS: ADMIT Internal Medicine; ATTEND Internal Medicine
PROC: 0DH63UZ Insertion of Feeding Device into Stomach, Percutaneous Approach (ICD-10-PCS; principal; 2024-06-11)
DX: K94.23 Gastrostomy malfunction (principal); R56.9 Unspecified convulsions; R13.10 Dysphagia, unspecified; K29.70 Gastritis, unspecified, without bleeding; Q90.9 Down syndrome, unspecified; Z79.51 Long term (current) use of inhaled steroids; Y83.3 Surgical operation with formation of external stoma as the cause of abnormal reaction of the patient, or of later complication, without mention of misadventure at the time of the procedure; Y82.8 Other medical devices associated with adverse incidents; Y92.9 Unspecified place or not applicable; Z79.899 Other long term (current) drug therapy
CPT/HCPCS: 36415; 71045-TC; 80048-TC; 83735-TC; 84100-TC; 85025-TC; 85730-TC; 86850-TC; 87081-TC; A4223; A6403; G0378; J0690; J2060; J2405; J2470; J2704; J3490; J7030; J7042; J7050; J7060